=== PATIENT | female | born 1995 | race Caucasian/White ===

== ENCOUNTER 2023-06-25 13:47 | Inpatient (IN) | payer BC ==
[2023-06-25 14:33] VITALS: BMI 34.2
[2023-06-25] MEDS ORDERED: hydrALAZINE 20 MG/ML VIAL SLOW IVP PRN ×3 (15:21→23:29)
[2023-06-25] MEDS ORDERED: Diphenoxylate HCl/Atropine Tablet PO PRN ×2 (16:45)
[2023-06-25] MEDS ORDERED: Carboprost 250 MCG/ML AMP IM PRN (16:45)
[2023-06-25] MEDS ORDERED: Lactated Ringer's 1,000 ML IV SCH (16:45)
[2023-06-25] MEDS ORDERED: HYDROcodone/Acetaminophen 5/325 mg Tablet PO PRN ×4 (16:45→23:29)
[2023-06-25] MEDS ORDERED: Promethazine HCl 25 MG/ML VIAL IM PRN (16:45)
[2023-06-25] MEDS ORDERED: Oxytocin 30 units/NS 500 ML 500 ML IV SCH (16:45)
[2023-06-25] MEDS ORDERED: Docusate 100 MG CAP PO PRN (16:45)
[2023-06-25] MEDS ORDERED: Ondansetron PF 4 MG/2 ML Vial IVP PRN ×2 (16:45→23:29)
[2023-06-25] MEDS ORDERED: Zolpidem Tartrate 5 MG TAB PO PRN ×2 (16:45→23:29)
[2023-06-25] MEDS ORDERED: Misoprostol 200 MCG TAB PR PRN (16:45)
[2023-06-25] MEDS ORDERED: fentaNYL 50 mcg/mL 1 mL Vial SLOW IVP PRN (16:45)
[2023-06-25] MEDS ORDERED: Ibuprofen 800 MG TAB PO PRN (16:45)
[2023-06-25] MEDS ORDERED: Methylergonovine 0.2 MG/ML VIAL IM PRN (16:45)
[2023-06-25 17:27] LABS: Hematocrit 37.6 % (34.9-44.5); Hemoglobin 12.6 g/dL (12.0-15.5); Mean Corpuscular HGB CONC 33.5 g/dL (32.0-36.0); Mean Corpuscular Hemoglobin 30.1 pg (27.0-33.0); Mean Corpuscular Volume 89.7 fl (81.6-98.3); Mean Platelet Volume 11.3 fl (7.4-10.4); Platelet Count 211 10x3/uL (150-450); RBC Distribution Width 13.2 % (11.5-14.5); Red Blood Cell (RBC) Count 4.19 10x6/uL (3.90-5.03); White Blood Cell (WBC) Count 13.8 10x3/uL (3.5-10.5)
[2023-06-25 17:54] LABS: HBSAg Index 0.19 S/CO (0-0.99); HIV (1/2) Antibody/Antigen Non-Reactive (NonReactive); HIV 1/2 INDEX 0.06 S/CO (<1.00); Hep B Surf Ag - L&D Non-Reactive S/CO (NonReactive)
[2023-06-25 17:55] LABS: Syphilis Antibody Nonreactive (Nonreactive); Syphilis Antibody Index 0.03 S/CO (<1.00 Non-Reactive)
[2023-06-25] MEDS: Oxytocin 30 units/NS 500 ML 500 ML IV SCH (23:10)
[2023-06-25] MEDS ORDERED: Milk Of Magnesia 30 ML UDCUP PO PRN (23:29)
[2023-06-25] MEDS ORDERED: Misoprostol 200 MCG TAB VAG PRN (23:29)
[2023-06-25] MEDS ORDERED: Lanolin Ointment 7 GM TUBE TOP PRN (23:29)
[2023-06-25] MEDS ORDERED: Bisacodyl 10 MG SUPP PR PRN (23:29)
[2023-06-25] MEDS ORDERED: diphenhydrAMINE 25 MG CAP PO PRN (23:29)
[2023-06-25] MEDS ORDERED: Preparation H Ointment 28 GM TUBE PR PRN (23:29)
[2023-06-25] MEDS: Lidocaine 1% (PF) 30 ML VIAL SC PRN (23:43)
[2023-06-25] MEDS: Acetaminophen 500 MG TAB PO PRN (23:55)
[2023-06-26 05:13] LABS: Hematocrit 33.7 % (34.9-44.5); Hemoglobin 11.8 g/dL (12.0-15.5); Mean Corpuscular Hemoglobin 30.8 pg (27.0-33.0); Mean Platelet Volume 11.7 fl (7.4-10.4); Platelet Count 189 10x3/uL (150-450); Red Blood Cell (RBC) Count 3.83 10x6/uL (3.90-5.03); White Blood Cell (WBC) Count 19.5 10x3/uL (3.5-10.5)
[2023-06-26] MEDS: Ibuprofen 800 MG TAB PO SCH (05:41)
[2023-06-26] MEDS: Benzocaine-Menthol 82.5 ML CAN TOP PRN (05:42)
[2023-06-26] MEDS: Docusate 100 MG CAP PO SCH (08:49)
[2023-06-26] MEDS: Prenatal Vitamin 1 TAB PO SCH (08:49)
[2023-06-26] MEDS: Ferrous Sulfate 325 MG TAB PO SCH (08:58)
[2023-06-26] MEDS: Boostrix 0.5 ML (Tdap) VIAL (>/=7 yrs of age) IM ONE (08:58)
[2023-06-26 20:55] VITALS: TEMP 97.7
[2023-06-27 07:58] VITALS: BP 102/62
== END 2023-06-27 15:35 | disposition home or self-care (01) | DRG 807 ==
LOC: CSHLD/OP 13:47 → CSHLD 16:43 → CSHPP 06-26 02:15
PROVIDERS: ADMIT Obstetrics & Gynecology; ATTEND Obstetrics & Gynecology
PROC: 10E0XZZ Delivery of Products of Conception, External Approach (ICD-10-PCS; principal; 2023-06-25)
PROC: 0KQM0ZZ Repair Perineum Muscle, Open Approach (ICD-10-PCS; 2023-06-25)
PROC: 10907ZC Drainage of Amniotic Fluid, Therapeutic from Products of Conception, Via Natural or Artificial Opening (ICD-10-PCS; 2023-06-25)
DX: O99.284 Endocrine, nutritional and metabolic diseases complicating childbirth (principal); Z37.0 Single live birth; E03.9 Hypothyroidism, unspecified; Z3A.39 39 weeks gestation of pregnancy; O70.1 Second degree perineal laceration during delivery; M06.9 Rheumatoid arthritis, unspecified; O99.353 Diseases of the nervous system complicating pregnancy, third trimester
CPT/HCPCS: 36415; 36416; 85027; 86780; 86850; 86900; 86901; 87340; 87389; 99285; J2001; J2590